=== PATIENT | female | born 1990 | race Caucasian/White ===

== ENCOUNTER 2023-05-26 07:31 | Emergency (ER) | payer OTHER, SELFPAY ==
[2023-05-26 07:42] VITALS: BP 123/74; PULSE 86; RESP 16; TEMP 36.6; O2SAT 99; BMI 21.1
--- NOTE | 2023-05-26 07:54 | W.ED.FEMALGU ---
HPI - Female Genitourinary General: Chief complaint: Urogenital-Female Stated complaint: female problems Time Seen by Provider: 05/26/23 07:47 History of Present Illness: Healthy 33-year-old female who presents the emergency room with urinary complaints. She says she been taking Amoxil and had gotten better after a while but this morning awoke with pelvic pain and pressure and pain into her back. Also with dysuria again. No fever. No vomiting. No altered mental status. Review of Systems Narrative: Constitutional symptoms: Negative except as documented in HPI. Skin symptoms: Negative except as documented in HPI. Eye symptoms: Negative except as documented in HPI. ENMT symptoms: Negative except as documented in HPI. Respiratory symptoms: Negative except as documented in HPI. Cardiovascular symptoms: Negative except as documented in HPI. Gastrointestinal symptoms: Negative except as documented in HPI. Genitourinary symptoms: Negative except as documented in HPI. Musculoskeletal symptoms: Negative except as documented in HPI. Neurologic symptoms: Negative except as documented in HPI. Psychiatric symptoms: Negative except as documented in HPI. Endocrine symptoms: Negative except as documented in HPI. Physical Exam Narrative: EXAM NARRATIVE: General: Alert, no acute distress. Skin: warm and dry Head: Normocephalic Neck: Trachea midline Eye: Extraocular movements are intact. Ears, nose, mouth and throat: Oral mucosa moist Respiratory: Respirations are non-labored Musculoskeletal: Normal ROM Neurological: Alert and oriented to person, place, time, and situation, No focal neurological deficit observed. Psychiatric: Cooperative, appropriate mood & affect. Course Vital Signs: Vital signs: Vital Signs Temperature 97.9 F 05/26/23 07:42 Pulse Rate 86 05/26/23 07:42 Respiratory Rate 16 05/26/23 07:42 Blood Pressure 123/74 05/26/23 07:42 Pulse Oximetry 99 05/26/23 07:42 Oxygen Delivery Me thod Room Air 05/26/23 07:42 MDM - Female Medical Decision Making Medical decision making: Differential diagnosis including but not limited to and based on the above HPI, review of systems and physical exam: Differential diagnosis for patient with dysuria / lower abdominal pain: Ureterolithiasis. Urinary tract infection. Cystitis. With the possibility of sepsis, pyelonephritis and renal failure. Orders placed to evaluate differential diagnosis based on the above differential, HPI and physical exam Initially displacing orders for urinalysis. Patient is young and has no signs and symptoms that would be concerning for renal failure or sepsis. Lab Review: Laboratory results were reviewed and interpreted by myself the emergency room physician. Urinalysis shows a definite infection. 2+ leukocyte Estrace with too numerous to count white cells. She is nitrite negative. Reexamination: Patient is stable no acute distress. No altered mental status. No increased work of breathing. Lab Data Laboratory Results Urine Color Yellow (Yellow) 05/26/23 07:50 Urine Appearance Cloudy (CLEAR) A 05/26/23 07:50 Urine pH 6 (5-7) 05/26/23 07:50 Ur Specific [place] 1.015 (1.005-1.030) 05/26/23 07:50 Urine Protein Neg (Negative) 05/26/23 07:50 Urine Glucose (UA) Norm (Normal) 05/26/23 07:50 Urine Ketones Negative (Negative) 05/26/23 07:50 Urine Blood 2+ (Negative) H 05/26/23 07:50 Urine Nitrate Negative (Negative) 05/26/23 07:50 Urine Bilirubin Neg (Negative) 05/26/23 07:50 Urine Urobilinogen Norm mg/dL (Negative) 05/26/23 07:50 Ur Leukocyte Esterase 2+ (Negative) H 05/26/23 07:50 Urine RBC 5-10 /hpf (0-2) H 05/26/23 07:50 Urine WBC Too numerous to cnt /hpf (0-5) H 05/26/23 07:50 Ur Squamous Epith Cells 5-10 /hpf (0-5) H 05/26/23 07:50 Ur Transition Epith Cell 0-4 /hpf 05/26/23 07:50 Amorphous Sediment Not Reportable 05/26/23 07:50 Urine Bacteria 1+ /hpf (NONE) H 05/26/23 07:50 Urine Mucus 1+ /hpf 05/26/23 07:50 No radiology studies performed this visit Other Data Assessment and plan: Urinary tract infection -IM Toradol and IM Rocephin. Will send her home on Omn[facility]. Urine culture was sent. - Discharged home - Discussed findings and plan with patient. Answered any questions. - All laboratory values were reviewed and interpreted personally by myself, the ER physician - All imaging was reviewed and interpreted personally by myself, the ER physician. - Evaluation and treatment of this problem were appropriate in the emergency setting Discharge Plan Discharge Patient Disposition: Home Clinical Impression: Urinary tract infection Condition: Stable Prescriptions: New Pyridium 100 mg tablet 100 mg PO Q8H Qty: 6 0RF diclofenac potassium 50 mg tablet 50 mg PO BID PRN (Reason: pain) Qty: 20 0RF cefdinir 300 mg capsule 300 mg PO BID 10 Days Qty: 20 0RF No Action amoxicillin 500 mg Capsule 500 mg PO TID sumatriptan succinate 100 mg tablet 100 mg PO DAILY PRN (Reason: Migraine Headache) Discharge Orders: Discharge ED (Routine); Ordered 05/26/23 Ordered By: Darline Armijo Referrals: Sea Duncan FNP [Primary Care Provider] - 4-7 days (You have been screened and evaluated and felt safe for discharge. Health conditions do change or evolve sometimes and as such it is important that you follow up with your Primary Doctor to be re checked, 3-5 days is a general good time frame for follow up. You are always welcome to return to the ED for re assessment if your symptoms are worsening or you have new concerns) Discharge Diet: Usual diet Discharge Activity: Resume usual activity Patient Instructions: Urinary Tract Infection in Women (ED), Opioid Safety, Pain Management Coding Level of Care Code ED Knife Setter for Elayne Page
[2023-05-26 08:26] LABS: Bilirubin Urine Neg (Negative); Blood Urine 2+ (Negative); Glucose Urine UA Norm (Normal); Ketones Urine Negative (Negative); Nitrate Urine Negative (Negative); Protein Urine Neg (Negative); Specific Gravity, Urine 1.015 (1.005-1.030); Urine Appearance Cloudy (CLEAR); Urine Color Yellow (Yellow); Urobilinogen Urine Norm (Negative); pH Urine 6 (5-7)
[2023-05-26 08:27] LABS: Leukocyte Esterase Urine 2+ (Negative)
[2023-05-26 08:33] LABS: Add Urine Culture? Yes; Bacteria Urine 1+ /hpf; Mucus Urine 1+ /hpf; Transitional Epi Cells Urine 0-4 /hpf; WBC Urine TOO NUMEROUS TO CNT /hpf (0-5)
[2023-05-26] MEDS: ketorolac 60 mg/2 mL INJ IM (08:36)
[2023-05-26] MEDS: cefTRIAXone 1,000 MG in water for injection-sterile 2.1 ML 2.10000000000000009 MG IM (09:19)
[2023-05-26 09:38] VITALS: BP 102/67; PULSE 69; O2SAT 97
== END 2023-05-26 09:39 | disposition home or self-care (01) ==
PROVIDERS: Emergency Provider Emergency Medicine; PCP Registered Nurse
DX: N39.0 Urinary tract infection, site not specified (principal)
CPT/HCPCS: 81001; 87077; 87086; 87186; 96372; 99284; J0696; J1885